=== PATIENT | male | born 1975 | race American Indian/Alaskan Native ===

== ENCOUNTER 2020-06-27 17:28 | Emergency (ER) | payer SELFPAY ==
[2020-06-27] MEDS ORDERED: ACETAMINOPHEN 325 MG TAB PO ONE (18:21)
--- NOTE | 2020-06-27 18:33 | Event Note ---
ED Screening Note Date of service: 06/27/20 Time: 18:19 ED Screening Note: This initial assessment/diagnostic orders/clinical plan/treatment(s) is/are subject to change based on patients health status, clinical progression and re- assessment by fellow clinical providers in the ED. Further treatment and workup at subsequent clinical providers discretion. Patient/guardian urged not to elope from the ED as their condition may be serious if not clinically assessed and managed. Initial orders include:
[2020-06-27 18:48] LABS: Basophils # (Auto) 0.1 K/mm3 (0.0-0.1); Eosinophils # (Auto) 0.1 K/mm3 (0.0-0.4); Eosinophils % (Auto) 1.5 % (0.0-4.3); Hematocrit 41.2 % (35.5-45.6); Hemoglobin 14.5 gm/dl (11.8-15.2); Lymphocytes # (Auto) 2.1 K/mm3 (1.2-5.4); Lymphocytes % (Auto) 41.1 % (13.4-35.0); Mean Corpuscular HGB Conc 35 % (32-34); Mean Corpuscular Volume 93 fl (84-94); Monocytes # (Auto) 0.8 K/mm3 (0.0-0.8); Platelet Count 215 K/mm3 (140-440); Red Blood Count 4.42 M/mm3 (3.65-5.03); Red Cell Distribution Width 12.9 % (13.2-15.2)
[2020-06-27 18:56] LABS: Alanine Aminotransferase 25 units/L (7-56); Albumin 4.1 g/dL (3.9-5); Blood Urea Nitrogen 17 mg/dL (9-20); Calcium 8.8 mg/dL (8.4-10.2); Hemolysis Index 20
[2020-06-27 19:00] LABS: BUN/Creatinine Ratio 24
[2020-06-27 19:23] LABS: Bilirubin,Urine NEG (Negative); Blood,Urine NEG (Negative); Color,Urine Yellow (Yellow); Mucus,Urine 3+ /HPF
[2020-06-27] MEDS ORDERED: IBUPROFEN 600 MG TAB PO ONE (20:12)
[2020-06-27] MEDS ORDERED: predniSONE 50 MG TAB PO ONE (20:12)
--- NOTE | 2020-06-27 20:17 | Emergency Department Report ---
ED General Adult HPI - General Chief complaint: Pain General Stated complaint: LIGHT HEADED/HIP/KNEE PAIN Source: patient Mode of arrival: Ambulatory Limitations: No Limitations - History of Present Illness Initial comments: Patient is a 45-year-old -[place] male with a history of chronic polyarticular osteoarthritis and paranoid schizophrenia who presents to the ED with complaint of acute exacerbation of his chronic pain characterized by bilateral hip and knee pains for the last 1 week, worse in the last 2 days. Patient states that he is currently homeless and is on his feet walking about and this has made his pain worse. Patient states that he has been taking [id number] medications whenever it is available with limited relief. Patient denies fall, traumatic injury, heavy lifting, nausea, vomiting, chest pain, shortness of breath, back pain, headache, dizziness, fever, chills, abdominal pain, numbness and tingling or weakness of lower extremities bilaterally. MD Complaint: Bilateral hip and knee pain -: Gradual, year(s) (3) Location: pelvis (Bilateral hip pain), lower extremity (Bilateral hip and knee pains) Radiation: non-radiation Severity scale (0 -10): 8 Quality: aching, sharp Consistency: constant Improves with: none Worsens with: movement Associated Symptoms: denies other symptoms. denies: confusion, chest pain, cough, diaphoresis, fever/chills, loss of appetite, malaise, nausea/vomiting, rash, seizure, shortness of breath, syncope, weakness, other Treatments Prior to Arrival: none - Related Data Previous Rx's Medication Instructions Recorded Last Taken Type Neomy/Baci/Polymyx Oint [Triple 1 applic TP TID #1 tube 08/15/15 Unknown Rx Antibiotic] Sulfamethoxazole/Trimethoprim 1 each PO BID #20 tablet 08/15/15 Unknown Rx [Bactrim DS TAB] traMADoL [Ultram] 50 mg PO Q6HR PRN #20 tablet 08/15/15 Unknown Rx Ibuprofen [Motrin] 600 mg PO Q8H PRN #30 tablet 06/27/20 Unknown Rx predniSONE [Deltasone] 40 mg PO QDAY #10 tab 06/27/20 Unknown Rx Allergies Allergy/AdvReac Type Severity Reaction Status Date / Time No Known Allergies Allergy Verified 08/14/15 21:19 ED Review of Systems ROS: Stated complaint: LIGHT HEADED/HIP/KNEE PAIN Other details as noted in HPI Constitutional: denies: chills, fever Eyes: denies: eye pain, eye discharge, vision change ENT: denies: ear pain, throat pain Respiratory: denies: cough, shortness of breath, wheezing Cardiovascular: denies: chest pain, palpitations Endocrine: no symptoms reported Gastrointestinal: denies: abdominal pain, nausea, diarrhea Genitourinary: denies: urgency, dysuria Musculoskeletal: arthralgia (Bilateral hip and knee pains), myalgia. denies: back pain, joint swelling Skin: denies: rash, lesions Neurological: denies: headache, weakness, paresthesias Psychiatric: denies: anxiety, depression Hematological/Lymphatic: denies: easy bleeding, easy bruising ED Past Medical Hx - Past Medical History Previous Medical History?: Yes Hx Arthritis: Yes Hx Psychiatric Treatment: Yes (schizophrenia) - Surgical History Past Surgical History?: No - Social History Smoking Status: Current Every Day Smoker Substance Use Type: Marijuana - Medications Home Medications: Home Medications Medication Instructions Recorded Confirmed Last Taken Type Neomy/Baci/Polymyx Oint [Triple 1 applic TP TID #1 tube 08/15/15 Unknown Rx Antibiotic] Sulfamethoxazole/Trimethoprim 1 each PO BID #20 tablet 08/15/15 Unknown Rx [Bactrim DS TAB] traMADoL [Ultram] 50 mg PO Q6HR PRN #20 tablet 08/15/15 Unknown Rx Ibuprofen [Motrin] 600 mg PO Q8H PRN #30 tablet 06/27/20 Unknown Rx predniSONE [Deltasone] 40 mg PO QDAY #10 tab 06/27/20 Unknown Rx ED Physical Exam - General Limitations: No Limitations General appearance: alert, in no apparent distress - Head Head exam: Present: atraumatic, normocephalic, normal inspection - Eye Eye exam: Present: normal appearance, PERRL, EOMI Pupils: Present: normal accommodation - ENT ENT exam: Present: normal exam, normal orophraynx, mucous membranes moist, TM's normal bilaterally, normal external ear exam - Neck Neck exam: Present: normal inspection, full ROM - Respiratory Respiratory exam: Present: normal lung sounds bilaterally. Absent: respiratory distress, wheezes, rales, rhonchi, chest wall tenderness, accessory muscle use, decreased breath sounds, prolonged expiratory - Cardiovascular Cardiovascular Exam: Present: regular rate, normal rhythm, normal heart sounds. Absent: systolic murmur, diastolic murmur, rubs, gallop - GI/Abdominal GI/Abdominal exam: Present: soft, normal bowel sounds. Absent: tenderness, guarding, rebound, hyperactive bowel sounds, hypoactive bowel sounds, organomegaly, mass - Extremities Exam Extremities exam: Present: normal inspection, full ROM, tenderness (Palpable bilateral hip and knee tenderness), normal capillary refill. Absent: pedal edema, joint swelling, calf tenderness - Back Exam Back exam: Present: normal inspection, full ROM. Absent: tenderness, CVA tenderness (R), muscle spasm, paraspinal tenderness, vertebral tenderness - Neurological Exam Neurological exam: Present: alert, oriented X3, CN II-XII intact, normal gait, reflexes normal - Psychiatric Psychiatric exam: Present: normal affect, normal mood, flat affect - Skin Skin exam: Present: warm, dry, intact, normal color. Absent: rash ED Course Vital Signs 06/27/20 17:39 Temperature 98.4 F Pulse Rate 86 Respiratory 15 Rate Blood Pressure 94/59 O2 Sat by Pulse 98 Oximetry ED Medical Decision Making - Lab Data Result diagrams: 06/27/20 18:26 06/27/20 18:26 - Medical Decision Making This is a 45-year-old -[place] male with a history of chronic polyarticular osteoarthritis and paranoid schizophrenia who presents to the ED with complaint of acute exacerbation of his chronic pain characterized by bilateral hip and knee pains for the last 1 week, worse in the last 2 days. Patient states that he is currently homeless and is on his feet walking about and this has made his pain worse. Patient states that he has been taking [id number] medications whenever it is available with limited relief. In the ED, patient is alert and oriented x3 and is not in distress. Patient was treated for pain in the ED. The basic lab test results were reviewed and are all nonactionable. Given the fact that the patient symptoms are chronic based on history and physical exam findings, patient was discharged from the ED, in a stable condition, and given a prescription for pain medications and advised to follow-up with his primary care physician in 7 to 10 days for reevaluation or return to the ED immediately if symptoms get worse. - Differential Diagnosis Chronic osteoarthritis; muscle spasm; muscle strain; tendinitis Critical care attestation.: If time is entered above; I have spent that time in minutes in the direct care of this critically ill patient, excluding procedure time. ED Disposition Clinical Impression: Chronic osteoarthritis, Chronic pain syndrome Disposition: TO HOME OR SELFCARE Is pt being admited?: No Does the pt Need Aspirin: No Condition: Stable Instructions: Chronic Pain, Adult, Osteoarthritis Additional Instructions: All lab test results were reviewed and are all nonactionable. Therefore take pain medication as needed with food, drink plenty of fluids and, follow-up with your primary care physician in 7 to 10 days for reevaluation or return to the ED immediately if symptoms get worse. Prescriptions: predniSONE [Deltasone] 40 mg PO QDAY #10 tab Ibuprofen [Motrin] 600 mg PO Q8H PRN #30 tablet PRN Reason: Pain Referrals: [facility] [Provider Group] - 7-10 days [facility] [Outside] - 7-10 days Time of Disposition: 20:19 Print Language: CANADIAN
[2020-06-27 20:59] VITALS: BP 105/66
== END 2020-06-27 21:30 | disposition home or self-care (01) ==
LOC: ED 17:28
DX: M19.90 Unspecified osteoarthritis, unspecified site (principal); G89.4 Chronic pain syndrome; M25.562 Pain in left knee; M25.561 Pain in right knee; F25.9 Schizoaffective disorder, unspecified; F17.200 Nicotine dependence, unspecified, uncomplicated; F12.90 Cannabis use, unspecified, uncomplicated; Z79.899 Other long term (current) drug therapy
CPT/HCPCS: 36415; 80053; 81001; 85025; 99283; J7512

== ENCOUNTER 2021-09-17 11:21 | Emergency (ER) | payer SELFPAY ==
--- NOTE | 2021-09-17 20:40 | Emergency Department Report ---
ED General Adult HPI - General Chief complaint: Skin/Abscess/Foreign Body Stated complaint: LARGE NOUDLES/HEAD Time Seen by Provider: 09/17/21 20:05 Source: patient Mode of arrival: Ambulatory Limitations: No Limitations - History of Present Illness Initial comments: For 6-year-old male presents emerged department complaining diarrhea long history of scalp cyst scalp lesions for which she was to have removed presents emergency department with today requesting to have those lesions removed reports no pain, no discharge no fevers chills or sweats, no nausea vomiting - Related Data Previous Rx's Medication Instructions Recorded Last Taken Type Neomy/Baci/Polymyx Oint [Triple 1 applic TP TID #1 tube 08/15/15 Unknown Rx Antibiotic] Sulfamethoxazole/Trimethoprim 1 each PO BID #20 tablet 08/15/15 Unknown Rx [Bactrim DS TAB] traMADoL [Ultram] 50 mg PO Q6HR PRN #20 tablet 08/15/15 Unknown Rx Ibuprofen [Motrin] 600 mg PO Q8H PRN #30 tablet 06/27/20 Unknown Rx predniSONE [Deltasone] 40 mg PO QDAY #10 tab 06/27/20 Unknown Rx Ketorolac [Toradol] 10 mg PO Q6H PRN #14 09/17/21 Unknown Rx Allergies Allergy/AdvReac Type Severity Reaction Status Date / Time No Known Allergies Allergy Verified 08/14/15 21:19 ED Review of Systems ROS: Stated complaint: LARGE NOUDLES/HEAD Other details as noted in HPI Comment: All other systems reviewed and negative ED Past Medical Hx - Past Medical History Hx Arthritis: Yes Hx Psychiatric Treatment: Yes (schizophrenia) - Social History Smoking Status: Current Every Day Smoker Substance Use Type: Marijuana - Medications Home Medications: Home Medications Medication Instructions Recorded Confirmed Last Taken Type Neomy/Baci/Polymyx Oint [Triple 1 applic TP TID #1 tube 08/15/15 Unknown Rx Antibiotic] Sulfamethoxazole/Trimethoprim 1 each PO BID #20 tablet 08/15/15 Unknown Rx [Bactrim DS TAB] traMADoL [Ultram] 50 mg PO Q6HR PRN #20 tablet 08/15/15 Unknown Rx Ibuprofen [Motrin] 600 mg PO Q8H PRN #30 tablet 06/27/20 Unknown Rx predniSONE [Deltasone] 40 mg PO QDAY #10 tab 06/27/20 Unknown Rx Ketorolac [Toradol] 10 mg PO Q6H PRN #14 09/17/21 Unknown Rx ED Physical Exam - General Limitations: No Limitations General appearance: alert, in no apparent distress - Head Head exam: Present: other (Multiple cystic lesions to the scalp in the caudal and occipital region some to the parietal region few to the frontal). Absent: atraumatic - Eye Eye exam: Present: normal appearance - ENT ENT exam: Present: mucous membranes moist - Neck Neck exam: Present: normal inspection - Respiratory Respiratory exam: Present: normal lung sounds bilaterally. Absent: respiratory distress - Cardiovascular Cardiovascular Exam: Present: regular rate, normal rhythm. Absent: systolic murmur, diastolic murmur, rubs, gallop - GI/Abdominal GI/Abdominal exam: Present: soft, normal bowel sounds - Rectal Rectal exam: Present: deferred - Extremities Exam Extremities exam: Present: normal inspection - Back Exam Back exam: Present: normal inspection - Neurological Exam Neurological exam: Present: alert, oriented X3 - Psychiatric Psychiatric exam: Present: normal affect, normal mood - Skin Skin exam: Present: warm, dry, intact, normal color. Absent: rash ED Course Vital Signs 09/17/21 13:04 Temperature 98.4 F Pulse Rate 66 Respiratory 16 Rate Blood Pressure 114/70 [Left] O2 Sat by Pulse 100 Oximetry Critical care attestation.: If time is entered above; I have spent that time in minutes in the direct care of this critically ill patient, excluding procedure time. ED Disposition Clinical Impression: Cyst, dermoid, scalp and neck Disposition: 01 HOME / SELF CARE / HOMELESS Is pt being admited?: No Does the pt Need Aspirin: No Condition: Stable Instructions: Excision of Skin Lesions, Epidermal Cyst Prescriptions: Ketorolac [Toradol] 10 mg PO Q6H PRN #14 PRN Reason: Pain Referrals: [facility] [Provider Group] - 3-5 Days DEMETRA RAHMAN DO [Staff Physician] - 3-5 Days (Be sure to follow-up with a general surgeon to be evaluated for cyst removal)
[2021-09-17 21:29] VITALS: BP 122/78
== END 2021-09-17 21:29 | disposition home or self-care (01) ==
LOC: ED 11:21
DX: D23.4 Other benign neoplasm of skin of scalp and neck (principal); D36.7 Benign neoplasm of other specified sites; M19.90 Unspecified osteoarthritis, unspecified site; F20.9 Schizophrenia, unspecified; F17.200 Nicotine dependence, unspecified, uncomplicated; Z79.899 Other long term (current) drug therapy
CPT/HCPCS: 99282